=== PATIENT | female | born 1985 | race Caucasian/White ===

== ENCOUNTER 2023-03-05 14:21 | Emergency (ER) | payer MEDICAID ==
[~2023-03-05] VITALS: Ht 157.5 cm; Wt 74.8 kg
--- NOTE | 2023-03-05 14:41 | NUR ---
HEADACHE X 2 WEEKS, OCCIPITAL AREA, NO RELIEF FOR OTC MEDICATION.
[2023-03-05] MEDS ORDERED: SUMATRIPTAN SUCCINATE 6 MG/0.5 ML VIAL SQ ONE ×2 (14:46→15:00)
[2023-03-05] MEDS ORDERED: SUMA100T16 PO (16:01)
--- NOTE | 2023-03-05 16:06 | NUR ---
Patient discharged to home in stable condition. Written and verbal after care instructions given. Patient verbalizes understanding of instruction.
[2023-03-05 16:07] VITALS: BP 116/77
== END 2023-03-05 16:07 | disposition home or self-care (01) ==
LOC: ER 14:27
DX: R51.9 Headache, unspecified (principal); Z88.2 Allergy status to sulfonamides; Z60.2 Problems related to living alone
CPT/HCPCS: 99285; 70450; 96372; J3030

== ENCOUNTER 2023-09-21 08:36 | Emergency (ER) | payer MEDICAID ==
[~2023-09-21] VITALS: Ht 157.5 cm; Wt 81.6 kg
[~2023-09-21 08:36] MED LIST: SUMA100T16 PO
[2023-09-21] MEDS ORDERED: IBUP-1955 PO (09:41)
[2023-09-21 10:12] VITALS: BP 121/81; TEMP 98.2; O2SAT 100
== END 2023-09-21 10:12 | disposition home or self-care (01) ==
LOC: ER 08:42
DX: S92.411A Displaced fracture of proximal phalanx of right great toe, initial encounter for closed fracture (principal); Z88.2 Allergy status to sulfonamides; Z60.2 Problems related to living alone; W22.8XXA Striking against or struck by other objects, initial encounter; Y93.89 Activity, other specified; Y92.89 Other specified places as the place of occurrence of the external cause; Y99.8 Other external cause status
CPT/HCPCS: 73630-TC